=== PATIENT | female | born 1970 | race Caucasian/White ===

== ENCOUNTER 2017-05-23 07:36 | Emergency (ER) | payer BC ==
[2017-05-23 07:45] VITALS: BP 124/86
[2017-05-23] MEDS ORDERED: Lidocaine 2% VISCOUS* 15 ML UDC PO ONE (08:01)
--- NOTE | 2017-05-23 08:01 | UC ---
Throat Pain/Nasal Yunior HPI - HPI Summary HPI Summary: Pt present with sinus pressure, sore throat, PND. sinus ans PND x 2 weeks. Sore throat x 3 days. No fevers, + chills. painful swallowing. Little improvement with APAP. none today. + sick contacts. life h.o recurrent strep. No rash No nichole , vision changes. Pt does not take decongestant. Pt does take flonase dailys. + tobacco use Pt's medications reviewed at this visit. - History of Current Complaint Chief Complaint: UCRespiratory Stated Complaint: THROAT Time Seen by Provider: 05/23/17 07:48 Hx Obtained From: Patient Hx Last Menstrual Period: n/a ?: No Onset/Duration: Gradual Onset Severity: Mild Pain Intensity: 4 Cough: Nonproductive Associated Signs & Symptoms: Positive: Other - chills, sinus, sore throat - Allergies/Home Medications Allergies/Adverse Reactions: Allergies Allergy/AdvReac Type Severity Reaction Status Date / Time Sulfa Drugs Allergy Severe Hives Verified 05/23/17 07:45 PMH/Surg Hx/FS Hx/Imm Hx Previously Healthy: Yes - Surgical History Surgical History: Yes Surgery Procedure, Year, and Place: bunion. knee. d&c. cyst removal in stomach - Family History Known Family History: Positive: Hypertension - Social History Occupation: Employed Full-time Lives: With Family Alcohol Use: Rare Substance Use Type: None Smoking Status (MU): Light Every Day Tobacco Smoker - 1/2 ppd Type: Cigarettes Amount Used/How Often: 1/2 ppd Length of Time of Smoking/Using Tobacco: 25 years Household Exposure Type: Cigarettes - Immunization History Most Recent Influenza Vaccination: no Review of Systems Constitutional: Chills Skin: Negative Eyes: Negative ENT: Sore Throat, Nasal Discharge, Sinus Congestion, Sinus Pain/Tenderness Respiratory: Cough Cardiovascular: Negative Gastrointestinal: Negative Genitourinary: Negative Motor: Negative Neurovascular: Negative Musculoskeletal: Negative Neurological: Negative Psychological: Negative All Other Systems Reviewed And Are Negative: Yes Physical Exam Triage Information Reviewed: Yes Appearance: Well-Appearing, No Pain Distress, Well-Nourished Vital Signs: Initial Vital Signs Temp 98.9 F 05/23/17 07:41 Pulse 76 05/23/17 07:41 Resp 14 05/23/17 07:41 BP 124/86 05/23/17 07:41 Pulse Ox 100 05/23/17 07:41 Vital Signs Reviewed: Yes Eye Exam: Normal Eyes: Positive: Conjunctiva Clear ENT: Positive: Other: - TM x2 clear turbinates inflammed and boggy thick, green PND + max sinus discomfort with palpation + PND uvula midline + erythema No exudate Neck exam: Normal Neck: Positive: Supple, Nontender, No Lymphadenopathy Respiratory Exam: Normal Respiratory: Positive: Chest non-tender, Lungs clear, Normal breath sounds, No respiratory distress, No accessory muscle use Cardiovascular Exam: Normal Cardiovascular: Positive: RRR, No Murmur, Pulses Normal Abdominal Exam: Normal Abdomen Description: Positive: Nontender, No Organomegaly, Soft Bowel Sounds: Positive: Present Musculoskeletal Exam: Normal Musculoskeletal: Positive: Strength Intact Neurological Exam: Normal Neurological: Positive: Alert Psychological Exam: Normal Psychological: Positive: Normal Response To Family Skin Exam: Normal Throat Pain/Nasal Course/Dx - Course Course Of Treatment: Pt with progressive sinus congestion, pnd, sore throat. Pt with clinical sinusitis on exam. pt with improved discomfort with lidocaine at urgent care. rx zithromax, lidocaine. diflucan for yeast infection with abx. work note. hdyrated. secretion precaution. pt comfortable and in agreement with plan - Differential Dx/Diagnosis Provider Diagnoses: sinusitis. pharyngitis Discharge - Discharge Plan Condition: Stable Disposition: HOME Prescriptions: Azithromycin TAB* [Zithromax TAB (Z-EUGENE) 250 mg #6 tabs] 2 tab PO .TODAY, THEN 1 DAILY #1 eugene Fluconazole [Diflucan 150 MG (NF)] 150 mg PO ONCE #1 tab Lidocaine 2% VISCOUS* [Xylocaine 2% Viscous*] 15 ml SWISH SPIT Q6H PRN #1 btl PRN Reason: Pain Patient Education Materials: Pharyngitis (ED), Sinusitis (ED) Forms: *Work Release Referrals: Mine Phillips [Primary Care Provider] - Additional Instructions: - Stay well hydrated. Drink plenty of non-alcoholic, non-caffinated beverages -- After you have been on antibiotics for 2 days - change your toothbrush and your pillowcase. These infections are spread by secrtions - do NOT share eating or drinking utensils - clean items you share with other people such as phone, computer mouse, TV remote, etc -- Alternate ibuprofen (Advil, motrin) 600mg and tylenol every 3 hours for pain or fever. Do NOT take ibuprofen if you are taking Naprosyn -- Cold beverages may be soothing to your throat - popsicles, apple sauce, jello - continue using flonase - it is recommended you use a decongestant as well such as Claritin-D, Lacey-D , sudafed - you also have a prescription for diflucan - use as needed if you develop a yeast infection from the antibiotics
== END 2017-05-23 08:16 | disposition home or self-care (01) ==
LOC: UCCORT 07:36
DX: J32.9 Chronic sinusitis, unspecified (principal); J02.9 Acute pharyngitis, unspecified; F17.210 Nicotine dependence, cigarettes, uncomplicated; Z88.2 Allergy status to sulfonamides
CPT/HCPCS: 87651; 99212; G0463

== ENCOUNTER 2017-06-10 08:16 | Emergency (ER) | payer BC ==
[2017-06-10 08:49] VITALS: BP 132/80
--- NOTE | 2017-06-10 09:15 | UC ---
Respiratory Complaint HPI - HPI Summary HPI Summary: 46 y/o female presents to the urgent care c/o persistent cough, with chest tightness and SOB since last Saturday. Pt reports about 2 weeks ago she was seen here at the clinic Dx with Sinusitis, Rx Z-nanci. She though symptoms were getting better when she finished the ABX, however she developed a dry cough. She has been taking Claritine PO and Flonase qd for her sinusitis, and Mucinex PO for her cough. But symptoms got worse since her cough is now productive with yellowish phlegm and SOB. Subjective fever at home, mild dizziness and back pain when she coughs. Pt denies chest pain, N/V/D, urinary symptoms, abdominal pain. - History of Current Complaint Hx Obtained From: Patient Hx Last Menstrual Period: 5-6 yrs ?: No Onset/Duration: Gradual Onset, Lasting Days, Still Present Timing: Intermittent Episodes Severity Initially: Mild Severity Currently: Moderate Pain Intensity: 0 Pain Scale Used: 0-10 Numeric Character: Cough: Productive, Sputum Description: - yellowish Aggravating Factors: Exertion, Deep Breaths Alleviating Factors: OTC Meds Associated Signs And Symptoms: Positive: Dyspnea, Fever - subjective at home, Dizziness, Sinus Discomfort Related History: Seasonal Allergies - Risk Factors Pulmonary Embolism Risk Factors: Negative Cardiac Risk Factors: Negative Pseudomonas Risk Factors: Negative Tuberculosis Risk Factors: Negative <Ivelisse Ortiz - Last Filed: 06/11/17 00:30> <Sheron Sears - Last Filed: 06/13/17 20:30> - History of Current Complaint Chief Complaint: UCRespiratory Stated Complaint: CHEST CONGESTION TIGHTNESS Time Seen by Provider: 06/10/17 08:36 - Allergies/Home Medications Allergies/Adverse Reactions: Allergies Allergy/AdvReac Type Severity Reaction Status Date / Time Sulfa Drugs Allergy Severe Hives Verified 06/10/17 08:49 Home Medications: Home Medications Fluticasone NASAL SPRAY 50MCG* [Flonase NASAL SPRAY 50MCG*] 2 spray BOTH NARES QPM 06/10/17 [History Confirmed 06/10/17] Loratadine & Pseudoephedrine [Claritin-D 12 Hour 5-120 mg] 1 tab PO DAILY [History Confirmed 06/10/17] PMH/Surg Hx/FS Hx/Imm Hx Previously Healthy: Yes - Pt denies PMHX - Surgical History Surgical History: Yes Surgery Procedure, Year, and Place: b/l bunion. b/l knee. d&c. cyst removal in stomach - Family History Known Family History: Positive: Cardiac Disease, Hypertension Family History: Asthma - Social History Occupation: Employed Full-time Lives: With Family Alcohol Use: Rare Substance Use Type: None Smoking Status (MU): Heavy Every Day Tobacco Smoker Type: Cigarettes Amount Used/How Often: 1/2 ppd Length of Time of Smoking/Using Tobacco: 25 years Household Exposure Type: Cigarettes - Immunization History Most Recent Influenza Vaccination: no <Ivelisse Ortiz Last Filed: 06/11/17 00:30> Review of Systems Constitutional: Fever - subjective at home Skin: Negative Eyes: Negative ENT: Nasal Discharge, Sinus Congestion Respiratory: Shortness Of Breath, Cough - productive Cardiovascular: Negative Gastrointestinal: Negative Genitourinary: Negative Motor: Negative Neurovascular: Negative Musculoskeletal: Negative Neurological: Headache - mild Psychological: Negative Is Patient Immunocompromised?: No All Other Systems Reviewed And Are Negative: Yes <Ivelisse Ortiz Filed: 06/11/17 00:30> Physical Exam Triage Information Reviewed: Yes Appearance: Well-Appearing, No Pain Distress, Well-Nourished, Thin Vital Signs: Initial Vital Signs Temp 98.1 F 06/10/17 08:31 Pulse 76 06/10/17 08:31 Resp 18 06/10/17 08:31 BP 132/80 06/10/17 08:31 Pulse Ox 100 06/10/17 08:31 Vital Signs Reviewed: Yes Eye Exam: Normal Eyes: Positive: Conjunctiva Clear - PERRLA, EOMI ENT Exam: Normal ENT: Positive: Normal ENT inspection, Hearing grossly normal, Pharynx normal, Nasal congestion - edematous and erythemaous nasal mucosa with clear nasal discharge Neck exam: Normal Neck: Positive: Supple, Nontender, No Lymphadenopathy Respiratory Exam: Normal Respiratory: Positive: Chest non-tender, No respiratory distress, No accessory muscle use, Crackles - mild scattered crackles in the posterior upper lung udnbar Cardiovascular Exam: Normal Cardiovascular: Positive: RRR, No Murmur, Pulses Normal, Brisk Capillary Refill <Ivelisse Ortiz Filed: 06/11/17 00:30> Vital Signs: Initial Vital Signs Temp 98.1 F 06/10/17 08:31 Pulse 76 06/10/17 08:31 Resp 18 06/10/17 08:31 BP 132/80 06/10/17 08:31 Pulse Ox 100 06/10/17 08:31 <Sheron Sears - Last Filed: 06/13/17 20:30> UC Diagnostic Evaluation - Laboratory O2 Sat by Pulse Oximetry: 100 <Ivelisse Ortiz - Last Filed: 06/11/17 00:30> Respiratory Course/Dx - Course Course Of Treatment: 46 y/o female presents to the urgent care c/o persistent cough, with chest tightness and SOB since last Saturday. Pt reports about 2 weeks ago she was seen here at the clinic Dx with Sinusitis, Rx Z-nanci. She though symptoms were getting better when she finished the ABX, however she developed a dry cough. She has been taking Claritine PO and Flonase qd for her sinusitis, and Mucinex PO for her cough. But symptoms got worse since her cough is now productive with yellowish phlegm and SOB. Subjective fever at home, mild dizziness and back pain when she coughs. Pt denies chest pain, N/V/D, urinary symptoms, abdominal pain. Hx obtained. Pt with scattered crackle on the posterior upper lung dnubar. Chest X-ray ordered, Impression: no active cardiopulmonary disease. Most likely acute bronchitis. Pt Rx Augmentin PO and Tessalon PO tabs to alleviate symptoms. Pt advised to rest, increase fluid intake and rest and if symptoms do not improve or worsen or if SOB develops with fever to f/u with her CP or return to the urgent care for further treatment. Pt understood and agreed with plan of care. Left the clinic ambulating. - Differential Dx/Diagnosis Differential Diagnosis/HQI/PQRI: Asthma, Bronchitis, Influenza, Laryngitis, MRSA , Sinusitis Provider Diagnoses: 1- Acute bronchitis <Ivelisse Ortiz - Last Filed: 06/11/17 00:30> Discharge <Ivelisse Ortiz - Last Filed: 06/11/17 00:30> <Sheron Sears - Last Filed: 06/13/17 20:30> - Discharge Plan Condition: Stable Disposition: HOME Prescriptions: Amoxicillin/Clavulanate TAB* [Augmentin TAB 875*] 875 mg PO BID #20 tab Benzonatate CAP* [Tessalon 100 MG CAP*] 100 mg PO TID #15 cap Patient Education Materials: Acute Bronchitis (ED) Forms: *Work Release Referrals: Mine Phillips [Primary Care Provider] - 1 Week Additional Instructions: 1-Please take full course of antibiotic to avoid resistance. 2-Take Tessalon PO tabs as directed and use the albuterol inhaler to alleviate sough. Increase fluid intake, rest and eat well. 3- If symptoms do not improve or worsen or your develop SOB with fever please f/ u with your PCP or return to the urgent care for further treatment. Attestation Statement User Type: Provider - I was available for consult. This patient was seen by the JOSIE. The patient was not presented to, seen by, or examined by me. -Fabi <Sheron Sears - Last Filed: 06/13/17 20:30>
--- NOTE | 2017-06-10 09:31 | RAD ---
HISTORY: Shortness of breath, persistent cough COMPARISONS: None VIEWS: 4: Frontal dual-energy and lateral views of the chest. FINDINGS: CARDIOMEDIASTINAL SILHOUETTE: The cardiomediastinal silhouette is normal. JUSTIN: The justin are normal. PLEURA: The costophrenic angles are sharp. No pleural abnormalities are noted. LUNG PARENCHYMA: The lungs are clear. ABDOMEN: The upper abdomen is clear. There is no subphrenic gas. BONES AND SOFT TISSUES: No bone or soft tissue abnormalities are noted. OTHER: There is a radiopaque foreign body overlying the left upper chest, frontal view only, likely an artifact external to the patient. IMPRESSION: NO ACTIVE CARDIOPULMONARY DISEASE.
== END 2017-06-10 10:07 | disposition home or self-care (01) ==
LOC: UCCORT 08:16
DX: J20.9 Acute bronchitis, unspecified (principal); F17.210 Nicotine dependence, cigarettes, uncomplicated; Z88.2 Allergy status to sulfonamides
CPT/HCPCS: 71020; 93005; 99212; G0463

== ENCOUNTER 2018-02-20 06:31 | Day surgery (SDC) | payer OTHER ==
[~2018-02-20 06:31] MED LIST: Buffered Lidocaine 0.9% SYRIN* 5 ML/SYR SYRINGE INTRADERM ONE; Famotidine IV* 10 MG/ML 2 ML (20 mg) IV ONE
[2018-02-20] MEDS ORDERED: Famotidine IV* 10 MG/ML 2 ML (20 mg) ONE (06:59)
[2018-02-20] MEDS ORDERED: ceFAZolin 2 GM PREMIX (*) 2 GM/50 ML BAG IVPB ONE (07:00)
[2018-02-20] MEDS ORDERED: Bupivacaine 0.25% SDV* 30 ML ONE (07:16)
[2018-02-20] MEDS ORDERED: fentaNYL* 50 MCG/ML 2 ML VIAL (100 MCG VIAL) ONE ×2 (07:23→08:11)
[2018-02-20] MEDS ORDERED: Midazolam* 1 MG/ML 5 ML VIAL (5 MG) ONE (07:23)
[2018-02-20] MEDS ORDERED: DiMENhydriNATE IV* 50 MG/ML VIAL ONE (07:50)
[2018-02-20] MEDS ORDERED: Ketorolac INJ* 30 MG/ML 1 ML VIAL ONE (07:50)
[2018-02-20] MEDS ORDERED: Propofol* 10 MG/ML 20 ML BTL IV PUSH ONE (07:50)
[2018-02-20] MEDS ORDERED: Dexamethasone IV* 4 MG/ML 1 ML (4 MG) ONE (07:50)
[2018-02-20] MEDS ORDERED: Lidocaine 2% PF * 5 ML VIAL ONE (07:50)
[2018-02-20] MEDS ORDERED: HYDROmorphone INJ* 1 MG/ML CARPUJECT SYRINGE ONE (09:39)
[2018-02-20] MEDS ORDERED: oxyCODONE/Acetamin 5/325 MG* TAB PO PRN (10:48)
[2018-02-20] MEDS ORDERED: Ondansetron INJ* 2 MG/ML VIAL IV PRN (10:48)
[2018-02-20] MEDS ORDERED: Naloxone* 0.4 MG/ML 1 ML VIAL IV PRN (10:48)
[2018-02-20] MEDS ORDERED: HYDROmorphone INJ* 1 MG/ML CARPUJECT SYRINGE IV PRN (10:48)
[2018-02-20] MEDS ORDERED: Ondansetron INJ* 2 MG/ML VIAL ONE (11:01)
[2018-02-20] MEDS ORDERED: HYDROcodone/ACETAMIN 5-325 MG* 1 TAB ONE (11:22)
[2018-02-20 11:57] VITALS: BP 133/96
--- NOTE | 2018-02-21 10:38 | RAD ---
INDICATION: Right wrist, M 24.831 COMPARISONS: MRI dated December 27, 2017 TECHNIQUE: Fluoroscopy was provided for a surgical procedure. Total fluoroscopy time is: 21 seconds FINDINGS: Spot images demonstrate an ulnar osteotomy and fixation plate IMPRESSION: FLUOROSCOPY WAS PROVIDED FOR A SURGICAL PROCEDURE CPT II Codes: G9500
--- NOTE | 2018-02-21 10:48 | OP ---
DATE OF OPERATION: 02/20/18 - [facility] DATE OF : 68 SURGEON: Calvin Sheriff MD INJECTION MOLDING MACHINE TENDER: VERONICA Villareal. An assistant professor sculpture was needed for the procedure to aid in positioning of the arm and retraction. ANESTHESIOLOGIST: Louisa Gaston MD ANESTHESIA: General. PRE-OP DIAGNOSES: 1. 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 2. Right extensor carpi ulnaris tendinitis. 3. Right tennis elbow. POST-OP DIAGNOSES: 1. 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 2. Right extensor carpi ulnaris tendinitis. 3. Right tennis elbow. OPERATIVE PROCEDURE: 1. Right wrist arthroscopic triangular fibrocartilage complex central perforation debridement. 2. Right wrist open extensor carpi ulnaris tendon debridement and groove deepening. 3. Right ulnar shortening osteotomy. 4. Right lateral epicondylitis debridement with debridement of the ECRB tendon origin. INDICATIONS: Kristal is a patient who has ulnar impaction syndrome and pretty extensive ECU tendinitis. I have been following her. We have gotten an MRI, which confirmed this. I doubt that if I did the ECU tendon debridement alone it would probably be inadequate. Additionally, she has been dealing with her elbow and so I thought that she probably would not get adequate relief unless we debrided the lateral epicondylitis as well. We had a thorough conversation about the risks and benefits including the risk of persistent pain, risk of infection, risk of nonunion at the osteotomy, risk of persistent pain in the elbow despite debriding the lateral epicondylitis. She agreed and wanted to proceed. ESTIMATED BLOOD LOSS: 5 mL. COMPLICATIONS: When I put the lag screw in, it created a small butterfly fragment; however, the vast majority of the ulna was intact and we still got excellent compression across the osteotomy. FINDINGS: See above and below. DESCRIPTION OF PROCEDURE: Kristal was seen in the preoperative holding area. The correct site, side, and procedure were identified. We came back to the operating room. The arm was prepped and draped in the usual fashion. A time- out was performed. The arm was positioned in the Acumed traction tower, a 9 traction was pulled. The arm was exsanguinated and the tourniquet inflated to 250 mmHg. I developed a 3/4 portal. The camera was introduced through the portal. A 6-hour portal was developed for instrumentation. The TFCC had a central perforation in it. I probed this; it was unstable. I brought in my biters and then my shaver and debrided it back to a nice smooth edge. I got some arthroscopic pictures. Once I had completed the debridement of the TFCC, I withdrew the arthroscopic equipment. There was not any evidence of scapholunate or lunotriquetral instability and so I did not go to the mid carpal row, so as to not create any additional trauma. I then took the hand out of the traction tower. I made a longitudinal incision over the DRUJ. Full-thickness flaps were raised. The ECU tendon sheath was then opened on its radial margin. There was quite a bit of tenosynovitis about the tendon. I debrided all of that, sent it off as a specimen. There was a bony edge at the end of the ulna, so I took the bur and I burred this back and deepened the groove just a little bit. I then placed some bone wax to get good hemostasis there. I irrigated out the wound. I placed the ECU tendon back into the groove and then closed the retinaculum with some 4-0 Ethibond suture. The ECU subsheath was not violated during this. Once the retinaculum was closed , I went ahead and irrigated out the wound. The skin was closed with 4-0 Monocryl suture. I then made a longitudinal incision over the mid aspect of the ulnar shaft. The dissection was carried down to the fascia. Full-thickness flaps were raised off the fascia. The interval between the FCU and ECU tendons was developed longitudinally. The soft tissues were released off the dorsum of the right ulna. The TriMed plate was brought in and clamped into position, so that it lied flat on dorsum of the bone. One screw was placed at the end of oblong hole. The other 3 screws were placed on the other side of the plate. I then selected a 4-mm cutting block. This was pinned into place and the first cut was made with the sagittal saw. The cutting block B was then introduced. The second cut was made. The wafer bone was excised. I had irrigated copiously during the osteotomy so as to prevent any thermal injury. I then placed a compression clamp and put the pin into place. The osteotomy was compressed and clamped into place. I then placed the guide for the lag screw. The lag screw was drilled and then tapped. When I placed the lag screw, as I final tightened the lag screw, it created a little butterfly fragment on the anterior aspect of the ulna. I got as much tension as I could on the lag screw and then I left it in place. I then placed my 2 additional screws on the same side of the holes of the oblong screw. I placed the first screw in compression fashion to try to increase the amount of compression we had on osteotomy given the poor lag screw. The second screw was placed in neutral position. The compression across the osteotomy looked very nice. I irrigated out the wound. The fascia was closed with 3-0 Vicryl suture, subcutaneous tissues were reapproximated with 3-0 Vicryl suture, the skin was closed with 4-0 Monocryl suture. Lastly, I made a 3- to 4-cm incision over the lateral epicondyle. Full- thickness flaps were raised off the fascia. The interval between the ECRL and EDC fascia was opened. The ECRB tendon was then debrided right off the lateral epicondyle taking care to preserve the lateral ulnar collateral ligament. Once I completely debrided that, I curetted everything out, everything was looking nice and clean, so I used some 0 Vicryl suture to reclose the fascia. Skin was closed with 4-0 Monocryl suture and Steri-Strips. All of the wounds were irrigated with 0.25% plain Marcaine. The wounds were dressed with again Steri- Strips, 4x4s, sterile Webril, and then sugar-tong splint was applied. Tourniquet was deflated. Hand pinked up immediately. She was then woken up and taken to recovery room in stable condition. [id number]/[facility] #: [id number] CLEMENT
== END 2018-02-20 11:48 | disposition home or self-care (01) ==
LOC: OREAST 06:31
PROVIDERS: ATTEND Orthopaedic Surgery Hand Surgery
DX: M24.831 Other specific joint derangements of right wrist, not elsewhere classified (principal); M65.841 Other synovitis and tenosynovitis, right hand; M77.11 Lateral epicondylitis, right elbow; Z72.0 Tobacco use; Z79.899 Other long term (current) drug therapy
CPT/HCPCS: 76000; 88304; 88311; C1713; C1776; J0690; J1100; J1170; J1240; J1885; J2250; J2405; J2704; J3010

== ENCOUNTER 2018-12-12 10:35 | Emergency (ER) | payer OTHER ==
[2018-12-12 11:04] VITALS: BP 128/86
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
== END 2018-12-12 11:30 | disposition home or self-care (01) ==
LOC: UCCORT 10:35
DX: S06.0X0A Concussion without loss of consciousness, initial encounter (principal); S16.1XXA Strain of muscle, fascia and tendon at neck level, initial encounter; F17.210 Nicotine dependence, cigarettes, uncomplicated; Z88.2 Allergy status to sulfonamides; V49 Car occupant injured in other and unspecified transport accidents; Y92.9 Unspecified place or not applicable
CPT/HCPCS: 99212; G0463

== ENCOUNTER → 2019-03-30 08:02 | Day surgery (SDC) | payer OTHER ==
[~2019-03-30 08:02] MED LIST changes: +Acetaminophen TAB* 325 MG PO PRN; -Buffered Lidocaine 0.9% SYRIN* 5 ML/SYR SYRINGE INTRADERM ONE; +Buffered Lidocaine 1% SYRIN* 1 ML/SYRINGE INTRADERM ONE; +Bupivacaine 0.25% SDV PF* 10 ML VIAL INJ ONE; +Dexamethasone IV* 4 MG/ML 1 ML (4 MG) ONE; +DiMENhydriNATE IV* 50 MG/ML VIAL IV PUSH PRN; +DiMENhydriNATE IV* 50 MG/ML VIAL ONE; +Famotidine IV* 10 MG/ML 2 ML (20 mg) ONE; +HYDROmorphone INJ1* 1 MG/ML SYRINGE IV PRN; +KETAMINE HCL* 50 MG/ML 10 ML VIAL ONE; +Ketorolac INJ* 30 MG/ML 1 ML VIAL ONE; +Lactated Ringers 1000 ML Bag* 1,000 ML IV SCH; +Lidocaine 1% MPF ** 5 ML VIAL ONE; +Lidocaine 1% w EPI 1:100,000* 30 ML VIAL ONE; +Lidocaine 1% w EPI 1:200,000* 30 ML VIAL ONE; +Lidocaine 2% PF * 5 ML VIAL ONE; +Midazolam* 1 MG/ML 5 ML VIAL (5 MG) ONE; +Naloxone* 0.4 MG/ML 1 ML VIAL IV PRN; +Ondansetron INJ* 2 MG/ML VIAL ONE; +Phenylephrine 40 MCG/ML SYRINGE ONE; +Propofol* 10 MG/ML 20 ML BTL ONE; +ROPIVACAINE 5 MG/ML 30 ML BTL (0.5%) ONE; +Succinylcholine* 20 MG/ML 10 ML VIAL ONE; +ceFAZolin 2 GM in NS PREMIX(*) 2 GM/100 ML BAG IVPB ONE; +fentaNYL* 50 MCG/ML 2 ML VIAL (100 MCG VIAL) ONE
[2019-03-30 13:07] VITALS: BP 146/82
--- NOTE | 2019-03-30 18:21 | OP ---
OPERATIVE REPORT: DATE OF OPERATION: 03/30/19 DATE OF : 68 SURGEON: Calvin Sheriff MD TAPE CALENDER: VERONICA Villareal An assistant basketball coach was needed for the entirety of the procedure to aid in positioning of the arm and retrac tion and passing of the arthroscopic instruments. ANESTHESIOLOGIST: Dr. Gaston. ANESTHESIA: General with plus block. PRE-OP DIAGNOSES: Right shoulder significant superior labrum anterior and posterior tear and impinge ment syndrome. POST-OP DIAGNOSES: Right shoulder significant superior labrum anterior and posterior tear and imping ement syndrome. OPERATIVE PROCEDURE: 1. Right shoulder arthroscopic debridement with arthroscopic biceps tenotomy and debridement of larg e superior labrum anterior and posterior tear. 2. Right shoulder arthroscopic subacromial decompression with bursectomy and acromioplasty. 3. Right shoulder subpectoral biceps tenodesis. 4. Right shoulder open distal clavicle excision. INDICATIONS: Kristal has chronic right shoulder pain. We have done MRI that showed a large SLAP tear and we have talked about risks and benefits. She understands the prolonged recovery, the risk of in fection, the risk of frozen shoulder, the risk of persistent pain despite doing surgery as well as ot her surgical risks and she wants to proceed. ESTIMATED BLOOD LOSS: 20 mL. COMPLICATIONS: None. FINDINGS: See above and below. DESCRIPTION OF PROCEDURE: Kristal was seen in the preoperative holding area. The correct side, site, and procedure were identified. We came back to the operating room where the arm was prepped and trent ped in the usual fashion and a time-out was performed. She was positioned in the beach chair positio n. After time-out and with the utilization of the Varma and Nephew Spider device for position of the arm , I first began by creating a posterior portal in the typical location 2 cm inferior and medial to th e posterolateral acromion. The scope was introduced into the glenohumeral joint. Immediately seen w as a large SLAP tear. I performed an outside-in technique to establish an anterior portal and cannul a was placed in anterior portal through the rotator interval. I then performed diagnostic arthroscop y. The rotator cuff insertion looked intact. The again seen was a SLAP tear. The inferior portions of the labrum looked intact. The articular surfaces looked intact. I then passed in my biter and r eleased the biceps tendon right off of or detached to the superior labrum. This retracted back out o f the way. I then used the shaver and followed by the radiofrequency ablator to perform a full debri sanjuana of the SLAP tear until I had back to stable margins. There was some infolded capsule posterio rly that was debrided back as well. After that was completed, I moved the camera to the subacromial space. I used the radiofrequency ablator and the shaver. I did perform a bursectomy. I outlined th e margins of the acromion spur which was seen on MRI by making visible the origin of the deltoid musc le and the CA ligament. I then used my donny to perform an acromioplasty sizing about 3 mm of acromio n. The rasp was used to smooth everything off once I was done. At this point, everything was looking good, so we went ahead and we devante out the arthroscopic equipme nt. I then externally rotated the arm and made a 2 cm longitudinal incision to just adjacent to the axillary crease. Dissection was carried down. The fascia was opened. Baby Hohmann retractors were placed around the humerus bone. The biceps tendon was noted in the groove. I released the fascia ov erlying the biceps tendon. I then placed a Varma and Nephew Q-FIX suture anchor into the bicipital g roove in the subpectoral position. Free needles were used to whipstitch the biceps tendon and sew it down firmly to the bone. The wound was then copiously irrigated out. The subcutaneous tissue was r eapproximated with 3-0 Vicryl and the skin was closed with 3-0 nylon as were other portal incisions a t this point. Lastly, I made a 2 cm longitudinal incision right over the distal clavicle. Dissection was carried do wn. The superior AC ligaments were split longitudinally and the capsule was raised subperiosteally. Baby Hohmann retractors were placed inside the capsule. I then used the sagittal saw to excise 1 cm distal clavicle very cleanly. Some bone wax was placed in the cancellous bed at the distal clavicle . The wound was irrigated out. Everything was looking every good. The superior AC ligaments were c losed with 2-0 Vicryl suture. Skin was closed with 3-0 nylon suture. Some additional local anesthet ic was infiltrated just around the incisions. The wounds were then dressed with Xeroform, 4x4s, and foam tape and she was then woken up and taken to the recovery room in stable condition. [id number]/[facility] #: [id number]
== END | disposition home or self-care (01) ==
LOC: OR 08:02
PROVIDERS: ATTEND Orthopaedic Surgery Hand Surgery
DX: S43.491A Other sprain of right shoulder joint, initial encounter (principal); M75.41 Impingement syndrome of right shoulder; M19.011 Primary osteoarthritis, right shoulder; F17.210 Nicotine dependence, cigarettes, uncomplicated; X58.XXXA Exposure to other specified factors, initial encounter; Y92.9 Unspecified place or not applicable; G89.18 Other acute postprocedural pain
CPT/HCPCS: 88304; 88311; C1776; J0330; J0690; J1100; J1240; J1885; J2001; J2250; J2405; J2704; J2795; J3010; J3490